=== PATIENT | female | born 1980 | race Hispanic/Latino ===

== ENCOUNTER 2017-12-30 01:47 | Inpatient (IN) | payer OTHER ==
[~2017-12-30] VITALS: Ht 154.9 cm; Wt 73.0 kg
[2017-12-30] MEDS ORDERED: PNV-SELECT TAB1 EACH PO (06:49)
--- NOTE | 2017-12-30 12:40 | PR ---
[facility] [address] [facility] [place] [address] Signed PP Progress Notes Datetime Report Generated by CPN: 12/30/2017 12:40 SUBJECTIVE: [id number] Pain: Within normal limits Nausea/Vomiting: Denies Vital Signs: [id number] Vital Signs: Reviewed; Within Normal Limits Notable Details: PP Hgb/Hct = 13.1/38.6 EXAM: [id number] Abdomen/Uterus: Normal Lochia: Normal Extremities: Normal IMPRESSION/PLAN/PROCEDURES: [id number] Impression: Normal progression Plan: Continue present management Progress Notes: Doing well, without complaint. Signing Physician: Nicole Phan MD Copies: ~ *Electronically Signed* 12/30/17 1240 NICOLE PHAN MD PATIENT NAME: AMMON QUACH PROGRESS NOTE DATE OF : 82 PHYSICIAN: NICOLE PHAN MD RPT #: [id number] REPORT IS CONFIDENTIAL AND NOT TO BE RELEASED WITHOUT AUTHORIZATION
--- NOTE | 2017-12-31 10:58 | PR ---
[facility] [address] [place] [address] Signed PP Progress Notes Datetime Report Generated by CPN: 12/31/2017 10:58 SUBJECTIVE: [id number] Pain: Within normal limits Nausea/Vomiting: Denies Vital Signs: [id number] Vital Signs: Reviewed; Within Normal Limits Notable Details: PP Hgb/Hct = 13.1/38.6 EXAM: [id number] Abdomen/Uterus: Normal Lochia: Normal Extremities: Normal IMPRESSION/PLAN/PROCEDURES: [id number] Impression: Normal progression Plan: Discharge Procedures: None Progress Notes: Doing well, without complaint. Ready to go home. Signing Physician: Nicole Phan MD Copies: ~ *Electronically Signed* 12/31/17 1058 NICOLE PHAN MD PATIENT NAME: AMMON QUACH PROGRESS NOTE DATE OF : 81 PHYSICIAN: NICOLE PHAN MD RPT #: [id number] REPORT IS CONFIDENTIAL AND NOT TO BE RELEASED WITHOUT AUTHORIZATION
== END 2017-12-31 12:20 | disposition home or self-care (01) | DRG 775 ==
LOC: FBCO 01:47 → FBC 02:13
PROVIDERS: ADMIT General Practice
PROC: 10E0XZZ Delivery of Products of Conception, External Approach (ICD-10-PCS; principal; 2017-12-30)
PROC: 0HQ9XZZ Repair Perineum Skin, External Approach (ICD-10-PCS; 2017-12-30)
DX: O62.3 Precipitate labor (principal); Z37.0 Single live birth; O70.0 First degree perineal laceration during delivery; O99.314 Alcohol use complicating childbirth; Z3A.38 38 weeks gestation of pregnancy
CPT/HCPCS: 36415; 85027; J2590; J7120